=== PATIENT | female | born 1955 | race Caucasian/White ===

== ENCOUNTER 2016-08-20 11:19 | Day surgery (SDC) | payer MEDICARE, MEDICAID ==
[~2016-08-20] VITALS: Ht 160 cm; Wt 103.0 kg
[~2016-08-20 11:19] MED LIST: 0.9% Sodium Chloride 1,000 ML IV PRN; CYCL10TA9 PO; MIRT15TA6 PO; POLY17PO6 PO; Sodium Chloride LOK Flush 10 mL Syringe IV PRN; TRAM50TA2 PO; VENL150C98 PO; ZLP10T PO; fentaNYL-PF 50 mCg/mL 2 mL Inj IVPUSH PRN
[2016-08-20 12:37] VITALS: BP 146/74; PULSE 65; RESP 14; O2SAT 98
[2016-08-20] MEDS ORDERED: 0.9% Sodium Chloride 1,000 ML IV ONE (14:02)
--- NOTE | 2016-08-20 14:07 | PCM.ENDCOL ---
Colonoscopy Date of Service: Aug 20, 2016 Physician Alexis Neal MD Pre Procedure Diagnosis: Screening Post Procedure Dx & Findings: Polyp hemorrhoids Procedure Colonoscopy Prep adequate Withdrawal 15 minutes PROCEDURE IN DETAIL: After unremarkable rectal examination Olympus video colonoscope was inserted patient's anal canal and was advanced to cecum. Number inserted identified including the ileocecal valve and appendiceal orifice. Scope was withdrawn systematically. The mucosa of the cecum, ascending, transverse, descending, sigmoid, rectal mucosa lined with whitish, pink, smooth, glistening, normal-appearing mucosa, normal fine branching, underlying vascularity, normal haustra. The patient tolerated procedure and was transported to observation area. In the sigmoid colon, there was a 1.5 cm flat polyp along the fold. Piecemeal polypectomy done with hot snare. 3 hemostatic clip deployment to close off the defect. 1 mL tattoo deployed for revisualization purpose. In the rectum, there were 2 polyps 2 mm in size and these were resected completely using cold snare. In the rectum retroflexion was done which showed hemorrhoid seen a canal was inspected carefully on way out and mild hemorrhoids noted. Impression Polyp 3 status post complete removal. The largest polyp was removed piecemeal. Tattoo deployed. Hemorrhoids Recommendation Repeat colonoscopy in 6 months through revisualize to 1.5 cm flap polyp if it comes back as adenomatous polyp. Presedation Assessment Risks and Benefits Informed consent was obtained from the patient after all risks and benefits including but not limited to drug reaction, infection, pain, bleeding, perforation, as well as alternatives were discussed. Patient monitoring Continuous pulse oximetry, cardiac monitoring, blood pressure monitoring, IV access, and oxygen at 2L per nasal cannula. Periprocedural Fentanyl: Fentanyl 100mcg Incrementally Midazolam: Midazolam 5mg Incrementally Complications There were no periprocedural complications identified. Post Procedure Plan Post Procedure Recommendations 1. Restrict activities today. 2. Resume normal activities in the morning. 3. Resume medications. 4. Patient informed of normal post procedure side effects as bloating, drowsiness, blood streaking in the stool. 5. average risk CRCS. If colon polyps come back as: -Hyperplastic- can repeat colonoscopy in 10 years -Tubular adenoma- repeat colonoscopy in 5 years -Tubulovillous/villous adenoma- repeat colonoscopy in 3 years -If any dysplasia- return to clinic as soon as possible 6. Please don't hesitate to call me with any questions. Alexis Neal MD Aug 20, 2016 14:07
[2016-08-20 14:14] VITALS: BP 129/65; PULSE 67; RESP 16; O2SAT 98
[2016-08-20 14:24] VITALS: BP 114/46; PULSE 81; RESP 16; O2SAT 96
[2016-08-20 14:31] VITALS: BP 133/68; PULSE 77; RESP 16; O2SAT 99
--- NOTE | 2016-08-22 12:33 | PATH ---
SURGICAL PATHOLOGY Attending Physician:Alexis Neal M.D. CASE STATUS: Signed Out PATIENT NAME: ROSIO GAMBOA PID: [id number] : 1955 DATE COLLECTED:08/20/2016 00:00 SPECIMEN: 1: Colon, Biopsy 2: Rectum, Biopsy CLINICAL HISTORY: 1.SIGMOID POLYP 2.RECTAL POLYP FINAL DIAGNOSIS: 1.SIGMOID COLON POLYP: HYPERPLASTIC POLYP INVOLVING ALL BIOPSY FRAGMENTS. 2.RECTAL POLYP: HYPERPLASTIC POLYP. ICD10 CODE K63.5 GROSS DESCRIPTION: The specimen is received in two formalin filled containers labeled with the patient's name. 1). The specimen is sublabeled "sigmoid polyp" and consists of 3 portions of tissue which aggregate to 0.6-0.5 x 0.3 CM. The specimen is entirely submitted in cassette 1A. 2). The specimen is sublabeled "rectal polyp" and consists of a 0.3 x 0.2 x 0.2 CM portion of tissue which is entirely submitted in cassette 2A. 08/21/2016 DAC MICRO DESCRIPTION: See diagnosis. ICD-9 CODES: CPT CODES: 1: 41197 2: 90167 Electronically Signed Out Jose Casillas MD [facility] [address], [place] [address] Technical component performed at [facility], [address] [place] [address] Ave[address], [address]
== END 2016-08-20 23:59 | disposition home or self-care (01) ==
LOC: END 11:19
PROVIDERS: ATTEND Internal Medicine
DX: Z12.11 Encounter for screening for malignant neoplasm of colon (principal); K63.5 Polyp of colon; K62.1 Rectal polyp; K64.8 Other hemorrhoids; G47.00 Insomnia, unspecified; F32.9 Major depressive disorder, single episode, unspecified; K59.00 Constipation, unspecified; Z87.891 Personal history of nicotine dependence
CPT/HCPCS: 45381; 45385; 88305; 99153; G0500; J2250; J3010; J7030